=== PATIENT | male | born 1955 | race Caucasian/White ===

== ENCOUNTER 2017-09-11 02:42 | Inpatient (IN) | payer OTHER ==
[~2017-09-11] VITALS: Ht 175.3 cm; Wt 108.9 kg
--- NOTE | ~2017-09-11 | HC ---
[facility] [place] [address] CONSULTATION Name: PATRICIA HUGGINS Room #: 239-P [facility] IN M.R.#: [id number] Admission: 09/11/17 Attend Phys: Tavares Yeboah MD Discharge: Date of : 51 Report #: [id number] THIS REPORT FOR: //name// CC: Casey Yeboah REASON FOR CONSULTATION: Chest pain. HISTORY OF PRESENT ILLNESS: The patient is a 61-year-old gentleman with history of coronary artery disease with remote stenting at 1:00 a.m. This morning, he awakened with midsternal chest tightness. This pain persisted through the early evening hours and he came to the Emergency Department where an EKG at 2:41 a.m. demonstrated sinus bradycardia with minimal ST-segment depression. His pain became more intense, he developed a ventricular fibrillation arrest and was defibrillated at one time. Post-EKG demonstrated high lateral [address] mm of high lateral [address]-segment elevation. A code STEMI was called. He denies heart failure symptoms including orthopnea, paroxysmal nocturnal dyspnea or lower extremity edema. No history of near-syncope or syncope. ALLERGIES: No known drug allergies. MEDICATIONS: Include aspirin 81 mg daily, atorvastatin 10 mg daily, hydrochlorothiazide 25 mg daily, lisinopril 20 mg daily and metoprolol succinate 50 mg daily. PAST MEDICAL HISTORY: Medical records have been reviewed and include a history of hypertension, dyslipidemia and coronary artery disease with prior stenting about 9 years ago. SOCIAL HISTORY: He is an ongoing smoker. . FAMILY HISTORY: Notable for father who had a heart attack at the age of 63. REVIEW OF SYSTEMS: All systems negative except as that noted above. PHYSICAL EXAMINATION: GENERAL: He is a pleasant gentleman who is diaphoretic, in moderate distress. VITAL SIGNS: Blood pressure is 142/80, heart rate of 80 and regular and respirations unlabored at 18. HEENT: There are neither xanthelasma, subcutaneous xanthomata, oral mucosal or digital cyanosis or kyphoscoliosis present. CHEST: Clear to auscultation and percussion. CARDIOVASCULAR: Regular rate and rhythm with normal S1 and S2. ABDOMEN: Soft and nontender. EXTREMITIES: Without cyanosis, clubbing or edema. Radial pulses are 2+. NEUROLOGICAL: He is alert with a nonfocal exam. [facility] [address] [place] [address] CONSULTATION Name: PATRICIA HUGGINS Room #: 239-P [facility] IN M.R.#: [id number] Admission: 09/11/17 Attend Phys: Tavares Yeboah MD Discharge: Date of : 51 Report #: [id number] RADIOLOGICAL DATA: EKG is detailed above. Chest x-ray remains pending. LABORATORY DATA: Sodium is 144, potassium 3.8 and creatinine 1.3. Troponin 0.11. White count 8.3, hemoglobin 14, hematocrit 42 and platelet count 212. IMPRESSION: 1. High lateral ST-segment elevation myocardial infarction. 2. Ventricular fibrillation with single defibrillation. 3. Hypertension. 4. Dyslipidemia. 5. Tobacco dependency. RECOMMENDATIONS: Urgent coronary angiography. <ELECTRONICALLY SIGNED> By: Casey Garza MD, [facility] 09/12/17 1643 [id number] Casey Garza MD, [facility] /nt
--- NOTE | ~2017-09-11 | 2DMMODE ---
[facility] [address] [place] [address] 2 D/M-MODE ECHOCARDIOGRAM Name: PATRICIA HUGGINS Room #: 239-P ADM IN M.R.#: [id number] Admission: 09/11/17 Attend Phys: Tavares Yeboah, Discharge: Date of : 51 Date of Service: 09/11/17 1210 Report #: [id number] THIS REPORT FOR: //name// APPROVED REPORT Study performed: 09/11/2017 09:00:02 EXAM: Comprehensive 2D, Doppler, and color-flow Echocardiogram Patient Location: Bedside Room #: 239 Status: routine BSA: 2.23 HR: 67 bpm BP: 136/64 mmHg Rhythm: NSR Other Information Study Quality: Adequate Technically limited study due to body habitus. Limited parasternal window.. Risk Factors: Cardiac Risk Factors: HTN, Hyperlipidemia Indications Chest Pain V-Fib 2D Dimensions LVEF(%): 47.78 (>50%) IVSd: 10.47 (7-11mm) LVOT Diam: 20.00 (18-24mm) LVDd: 39.61 mm PWd: 10.52 (7-11mm) Ascending Ao: 29.73 (22-36mm) LVDs: 30.25 (25-40mm) Aortic Root: 33.07 mm LV Single Plane 4CH: 55.00 % LV Single Plane 2CH: 49.08 % Underwood's LVEF: 52.04 % Biplane EF: 52.1 % Volumes Left Atrial Volume (Systole) Single Plane 4CH: 78.07 mL Single Plane 2CH: 70.20 mL LA ESV Index: 36.00 mL/m2 Aortic Valve [facility] [address] [place] [address] 2 D/M-MODE ECHOCARDIOGRAM Name: PATRICIA HUGGINS Room #: 239-[facility] IN ..#: [id number] Admission: 09/11/17 Attend Phys: Tavares Yeboah, Discharge: Date of : 51 Date of Service: 09/11/17 1210 Report #: [id number] AoV Peak Farhad.: 1.66 m/s AO Peak Gr.: 10.99 mmHg LVOT Max P.42 mmHg LVOT Max V: 1.05 m/s CLARITZA Vmax: 1.98 cm2 Mitral Valve E/A Ratio: 1.3 MV Decel. Time: 255.02 ms MV E Max Farhad.: 0.90 m/s MV A Farhad.: 0.68 m/s MV PHT: 73.95 ms IVRT: 87.66 ms TDI E/Lateral E': 11.25 E/Medial E': 15.00 Medial E' Farhad.: 0.06 m/s Lateral E' Farhad.: 0.08 m/s Pulmonary Valve PV Peak Farhad.: 0.82 m/s PV Peak Gr.: 2.71 mmHg Pulmonary Vein P Vein S: 0.59 m/s P Vein A: 0.29 m/s P Vein D: 0.44 m/s P Vein A Dur.: 162.6 msec P Vein S/D Ratio: 1.34 Tricuspid Valve TR Peak Farhad.: 3.03 m/s TR Peak Gr.: 36.83 mmHg Left Ventricle The left ventricle is normal size. There is normal left ventricular wall thickness. Mild distal lateral wall hypokinesis Left ventricular systolic function is normal. LVEF is 50-55%. The left ventricular diastolic function is normal. Right Ventricle The right ventricle is normal size. The right ventricular systolic function is normal. Atria Left atrium is at the upper limits of normal. Right atrium is at the upper limits of normal. Aortic Valve The aortic valve is normal in structure. No aortic regurgitation is [facility] [address] [place] [address] 2 D/M-MODE ECHOCARDIOGRAM Name: PATRICIA HUGGINS Room #: 239-P [facility] IN .R.#: [id number] Admission: 09/11/17 Attend Phys: Tavares Yeboah, Discharge: Date of : 51 Date of Service: 09/11/17 1210 Report #: [id number] present. There is no aortic valvular stenosis. Mitral Valve The mitral valve is normal in structure. Mild mitral regurgitation. No evidence of mitral valve stenosis. Tricuspid Valve The tricuspid valve is normal in structure. Mild tricuspid regurgitation. TR jet is 37 mmHg. Unable to assess PA pressure. Pulmonic Valve The pulmonary valve is normal in structure. There is no pulmonic valvular regurgitation. Great Vessels The aortic root is normal in size. The inferior vena cava is not visualized. Pericardium There is no pericardial effusion. <Conclusion> Left ventricular systolic function is normal. There is normal left ventricular wall thickness. Mild distal lateral wall hypokinesis LVEF is 50-55%. The aortic valve is normal in structure. No aortic regurgitation or stenosis The mitral valve is normal in structure. Mild mitral regurgitation. Pulmonary artery pressure could not be reliably ascertained There is no pericardial effusion. <ELECTRONICALLY SIGNED> By: Casey Garza MD, FACC 09/11/17 1210 09 121 Casey Garza MD, FACC /INF
--- NOTE | ~2017-09-11 | EKG ---
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 : 1955 Requested By: Magi Do Order Number: [id number] MD: Casey Garza Measurements Intervals [place] Rate: 82 P: 77 WI: 157 QRS: -5 QRSD: 84 T: -14 QT: 377 QTc: 441 Interpretive Statements Sinus rhythm Poor R wave progression Borderline ST elevation, lateral leads Baseline wander in lead(s) I,II,aVR,V3 Compared to ECG 11/27/2006 09:17:07 ST (T wave) deviation now present lateral ST elevation more pronounced Electronically Signed On 09-11-2017 10:04:07 CDT by Casey Garza [email or web address] <ELECTRONICALLY SIGNED> By: Casey Garza MD, [facility] 09/11/17 1004 0 0 Casey Garza MD, FAC /EPI
--- NOTE | ~2017-09-11 | EKG ---
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 : 1955 Requested By: Casey Garza Order Number: [id number] MD: Casey Garza Measurements Intervals [place] Rate: 46 P: 38 CO: 163 QRS: 70 QRSD: 99 T: 113 QT: 445 QTc: 390 Interpretive Statements Sinus bradycardia Septal infarct, age indeterminate T-wave abnormality, consider lateral ischemia Compared to ECG 09/11/2017 03:11:03 High lateral injury pattern is no longer present Electronically Signed On 09-12-2017 9:04:15 CDT by Casey Garza [email or web address] <ELECTRONICALLY SIGNED> By: Casey Garza MD, [facility] 09/12/17 0904 0643 0643 Casey Garza MD, [facility] /EPI
--- NOTE | ~2017-09-11 | CATHLAB ---
[facility] [address] [place] [address] INVASIVE PROCEDURE REPORT Name: PATRICIA HUGGINS Room #: 239-P ADM IN M.R.#: [id number] Admission: 09/11/17 Attend Phys: Tavares Yeboah, Discharge: Date of : 51 Date of Service: 09/11/17 0922 Report #: [id number] THIS REPORT FOR: //name// APPROVED REPORT Study performed: 09/11/2017 04:04:51 Patient Details Patient Status: ED Room #: The patient is a 61 year-old male Event Personnel Casey Garza Supervisor Tumblers, Morena Campos, GROUND SURVEILLANCE SYSTEMS OPERATOR Monitor, KonstantinJudi ricardo RN RN, Carlos Hernandez Procedures Performed Left Heart Cath w/or w/o Coronaries [id number] [facility] Revasc AMI Total/Sub Single RAMUS It C9606 AMIREVSING Indication STEMI (>0 to less than or equal to 6 hours), Chest pain Risk Factors Arterial HypertensionDysplipidemia , Family History, Chronic Lung Disease, Coronary Artery DiseaseHypertension, Tobacco History () Previous Procedures/Diagnoses Previous PCI Procedure Narrative The Right Groin^ was infiltrated with 1% Lidocaine subcutaneous anesthesia. A PINNACLE 6FR Sheath #[id number] sheath was inserted into the RFA^. Coronary angiography was performed using coronary diagnostic catheters. The right coronary system was accessed and visualized with a JR4 catheter. The left coronary system was accessed and visualized with a JL4 catheter. The left ventricle was accessed and visualized with a PIGTAIL catheter. Left ventricular/Aortic Valve gradient assessed via catheter pullback. Left ventriculogram was performed in 30 degree projection. Closure device was deployed with a 6 Fr MYNXGRIP 6/7F #[id number]. The patient tolerated the procedure well and there were no complications associated with the procedure. There was no hematoma. Intraoperative Conscious Sedation [facility] [address] [place] [address] INVASIVE PROCEDURE REPORT Name: PATRICIA HUGGINS Room #: 239-P [facility] IN ..#: [id number] Admission: 09/11/17 Attend Phys: Tavares Yeboah, Discharge: Date of : 51 Date of Service: 09/11/17 0922 Report #: [id number] Sedation start time: . Case end Time: . Fentanyl 50 mcg Fluoro Time: 6.56 minutes Dose: DAP 86669.70 cGycm2 1715 mGy Contrast Type and Amount: Visipaque 265 ml Coronary Angiography The patient's coronary anatomy is co- dominant. Diagnostic Cath Left Main Large, normal left main LAD The proximal LAD had been previously stented. Variable 75% proximal intrastent stenosis. Moderate diffuse mid to distal LAD plaquing Circumflex Proximal 65% circumflex stenosis OM1 The first marginal branch exhibited moderate, diffuse 40-50% sequential stenoses Right Coronary 70-75% mid right coronary stenosis R PDA Mild plaquing Ramus Occluded proximal ramus branch Left Ventriculography The left ventricle is normal in size with normal contractility. The left ventricular ejection fraction is estimated to be 55-60%. Left ventricular wall motion abnormalities are not present. There is no mitral insufficiency. Hemodynamics The aortic pressure is 173/93 mmHg with a mean of 114 mmHg. The left ventricular pressure is 191/21 mmHg with a mean of mmHg. The left ventricular end diastolic pressure is 21 mmHg. There was no gradient across the aortic valve upon pullback. Pullback from the left ventricle to the aorta revealed no gradient across the aortic valve. PCI Technique Lesion Anticoagulation was achieved with Heparin, Integrilin. Patient was preloaded with Brillinta. Percutaneous coronary intervention was performed on the ramus intermedius segment. The lesion stenosis prior to intervention was 100% with SURYA 0 flow. A LAUNCHER 6FR EBU 3.5 #[id number] Guide Catheter was used to engage the ostium. A Luge Wire .014 x 182CM #[id number] Interventional Guidewire was used to cross the lesion. [facility] [address] [place] [address] INVASIVE PROCEDURE REPORT Name: PATRICIA HUGGINS Room #: 239-P [facility] IN M.R.#: [id number] Admission: 09/11/17 Attend Phys: Tavares Yeboah, Discharge: Date of : 51 Date of Service: 09/11/17 0922 Report #: [id number] BALLOON DILATION A Balloon catheter Euphora RX 2.5 x 12 #[id number] was inserted and inflated up to 8.00atm for 26seconds. Repeat angiography revealed the following post-dilatation results: SURYA-3 flow restored. Long, severe variable stenosis involving the proximal portion of the ramus branch. STENT DEPLOYMENT A drug-eluting stent RESOLUTE RX 2.5 X 26 #[id number] was inserted and inflated up to 18.00atm for 41seconds. Repeat angiography revealed the following post-stent deployment results: 0% residual stenosis. POST STENT DEPLOYMENT BALLOON DILATION A Balloon catheter TREK NC RX 2.5 X 15 #[id number] was inserted and inflated up to 16.00atm for 29seconds. Additional Inflation: 20.00atm for 28seconds. Final angiography reveals 0 % stenosis with SURYA 3 flow. Conclusion 1. Normal global and regional left ventricular systolic function. EF 55-60% 2. Normal left main 3. Multivessel coronary artery disease 4. Occluded ramus branch successfully opened and stented with 2.5 x 26 Resolute medicated stent Recommendations Smoking Cessation Cardiac Rehabilitation Referral Aggressive Medical Therapy CABG Consider staged CAGB in 3-6mo Medications Administered CHRISTOPHER Inhibitor (any) Aspirin (any) Beta Yevgeniy (any) Statin (any) Ticagrelor [facility] [address] [place] [address] INVASIVE PROCEDURE REPORT Name: PATRICIA HUGGINS Room #: 239-P [facility] IN M.R.#: [id number] Admission: 09/11/17 Attend Phys: Tavares Yeboah, Discharge: Date of : 51 Date of Service: 06/921 Report #: [id number] Cardiac Rehabilitation Referral Smoking Cessation <ELECTRONICALLY SIGNED> By: Casey Garza MD, FAC 09/11/17921 1 1 Casey Garza MD, FAC /INF
--- NOTE | ~2017-09-11 | EKG ---
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 : 1955 Requested By: Magi Do Order Number: [id number] MD: Casey Garza Measurements Intervals [place] Rate: 55 P: 39 MA: 160 QRS: 42 QRSD: 84 T: 13 QT: 437 QTc: 418 Interpretive Statements Sinus rhythm Poor R wave progression Borderline ST elevation, lateral leads Compared to ECG 11/27/2006 09:17:07 ST (T wave) deviation now present Electronically Signed On 09-11-2017 10:03:15 CDT by Casey Garza [email or web address] <ELECTRONICALLY SIGNED> By: Casey Garza MD, [facility] 09/11/17 1003 0241 0241 Casey Garza MD, [facility] /EPI
[~2017-09-11 02:42] MED LIST: METOPROLOL SUCC50 MG PO; NAPROSYN500 MG; ZANAFLEX4 M2 PO
[2017-09-11 02:43] VITALS: BP 159/79
[2017-09-11 03:08] LABS: ABSOLUTE NEUTROPHILS 4.5 thou/uL (1.4-8.2); EOSINOPHILS 2.7 % (0.0-3.0); HEMATOCRIT 42.8 % (42.0-52.0); HEMOGLOBIN 14.6 gm/dL (14.0-18.0); LYMPHOCYTES 33.9 % (24.0-44.0); MCH 31.9 pg (26.0-34.0); MCHC 34.2 g/dL (28.0-37.0); MCV 93.2 fL (80.0-100.0); PLATELET COUNT 212 thou/uL (150-400); POLYS 54.4 % (36.0-66.0); RBC 4.59 mil/uL (4.50-6.00); RDW 13.7 % (10.5-14.5); WBC 8.3 thou/uL (4.0-11.0)
[2017-09-11 03:12] LABS: CALCIUM 7.5 mg/dL (8.5-10.1); CREATININE 1.3 mg/dL (0.7-1.3); POTASSIUM 3.8 mmol/L (3.5-5.1)
[2017-09-11 03:20] LABS: TROPONIN-I 0.11 ng/mL (<0.06)
[2017-09-11] MEDS ORDERED: ASPIR 8181 MG PO (03:30)
[2017-09-11] MEDS ORDERED: PRINIVIL20 MG PO (03:30)
[2017-09-11] MEDS ORDERED: HYDROCHLOROTHIA25 M1 PO (03:31)
[2017-09-11] MEDS ORDERED: LIPITOR10 MG PO (03:31)
[2017-09-11 04:10] VITALS: BP 138/71
[2017-09-11 21:00] VITALS: BP 146/77
[2017-09-11 22:00] VITALS: BP 122/54
[2017-09-11 23:00] VITALS: BP 143/41
[2017-09-12] VITALS (17 sets, daily range): BP systolic 126–182; BP diastolic 67–122
[2017-09-12 04:49] LABS: CHOLESTEROL 223 mg/dL (<200); HDL CHOLESTEROL 33 mg/dL (>40); LDL CHOLESTEROL 139 mg/dL (<100); TC:HDL 6.8 Ratio (Not establshd); TRIGLYCERIDE 259 mg/dL (<150); VLDL 52 mg/dL (<40)
[2017-09-12 04:52] LABS: CALCIUM 8.5 mg/dL (8.5-10.1); CREATININE 1.5 mg/dL (0.7-1.3); POTASSIUM 4.4 mmol/L (3.5-5.1)
[2017-09-12 04:55] LABS: SERUM ASSESSMENT Clear
[2017-09-12 04:59] LABS: TROPONIN-I 24.5 ng/mL (<0.06)
[2017-09-12 05:03] LABS: HEMATOCRIT 40.5 % (42.0-52.0); MCH 31.8 pg (26.0-34.0); MCHC 34.6 g/dL (28.0-37.0); MCV 92.1 fL (80.0-100.0); RBC 4.39 mil/uL (4.50-6.00); RDW 13.8 % (10.5-14.5); WBC 10.8 thou/uL (4.0-11.0)
[2017-09-13 00:25] VITALS: BP 132/84
[2017-09-13 04:39] VITALS: BP 169/81
[2017-09-13 06:59] VITALS: BP 153/78
[2017-09-13 10:13] LABS: HEMATOCRIT 38.5 % (42.0-52.0); HEMOGLOBIN 13.4 gm/dL (14.0-18.0); MCHC 34.8 g/dL (28.0-37.0); RBC 4.18 mil/uL (4.50-6.00); RDW 14.1 % (10.5-14.5); WBC 9.8 thou/uL (4.0-11.0)
[2017-09-13 10:26] LABS: ALBUMIN 3.6 g/dL (3.4-5.0); CALCIUM 8.6 mg/dL (8.5-10.1); CREATININE 1.5 mg/dL (0.7-1.3); MAGNESIUM 2.2 mg/dL (1.8-2.4); POTASSIUM 3.9 mmol/L (3.5-5.1); TOTAL BILIRUBIN 0.7 mg/dL (<0.1-1.0); TOTAL PROTEIN 7.3 g/dL (6.4-8.2)
[2017-09-13] MEDS ORDERED: BRILINTA90 MG PO (10:40)
[2017-09-13] MEDS ORDERED: ATORVASTATIN CA40 MG PO (10:40)
[2017-09-13] MEDS ORDERED: IMDUR 30 MG TAB30 M1 PO (10:45)
[2017-09-13] MEDS ORDERED: PLAVIX 75 MG TA75 M1 PO (10:46)
[2017-09-13 11:37] VITALS: BP 153/78
[2017-09-13] MEDS ORDERED: HYDROCODONE-AP1 EAC6 PO (12:02)
== END 2017-09-13 13:09 | disposition home or self-care (01) | DRG 246 ==
LOC: ER 02:42 → EROBS 03:52 → ICU 03:52 → TBA 04:12 → ICU 06:23 → 2N 09-12 17:09 → ENTRNSPT 09-13 12:15 → EDTRNSPTSTS 09-13 12:16 → 2N 09-13 13:09
PROVIDERS: Emergency Medicine; Internal Medicine; Nurse Practitioner Family
PROC: B2151ZZ Fluoroscopy of Left Heart using Low Osmolar Contrast (ICD-10-PCS; principal; 2017-09-11)
PROC: 027034Z Dilation of Coronary Artery, One Artery with Drug-eluting Intraluminal Device, Percutaneous Approach (ICD-10-PCS; principal; 2017-09-11)
PROC: 4A023N7 Measurement of Cardiac Sampling and Pressure, Left Heart, Percutaneous Approach (ICD-10-PCS; principal; 2017-09-11)
PROC: B2111ZZ Fluoroscopy of Multiple Coronary Arteries using Low Osmolar Contrast (ICD-10-PCS; principal; 2017-09-11)
DX: I21.29 ST elevation (STEMI) myocardial infarction involving other sites (principal); I46.9 Cardiac arrest, cause unspecified; I49.01 Ventricular fibrillation; I10 Essential (primary) hypertension; I48.91 Unspecified atrial fibrillation; I25.10 Atherosclerotic heart disease of native coronary artery without angina pectoris; E78.5 Hyperlipidemia, unspecified; E83.42 Hypomagnesemia; F17.210 Nicotine dependence, cigarettes, uncomplicated; E66.01 Morbid (severe) obesity due to excess calories; I25.2 Old myocardial infarction; Z95.5 Presence of coronary angioplasty implant and graft; Z68.35 Body mass index [BMI] 35.0-35.9, adult; Z79.82 Long term (current) use of aspirin; Z79.899 Other long term (current) drug therapy
CPT/HCPCS: 10078; 10081